=== PATIENT | male | born 1980 | race African-American/Black ===

== ENCOUNTER 2018-02-02 09:29 | Emergency (ER) | payer OTHER, MEDICAID | END 2018-02-02 10:27 | disposition home or self-care (01) | LOC: FTE 09:29 | DX: J06.9 Acute upper respiratory infection, unspecified (principal); R40.2412 Glasgow coma scale score 13-15, at arrival to emergency department | CPT/HCPCS: 99282; Z7502 ==

== ENCOUNTER 2018-04-13 16:56 | Emergency (ER) | payer OTHER | END 2018-04-13 18:31 | disposition home or self-care (01) | LOC: FTE 16:56 | DX: M54.2 Cervicalgia (principal); M54.6 Pain in thoracic spine; Z87.891 Personal history of nicotine dependence | CPT/HCPCS: 99282; Z7502 ==

== ENCOUNTER 2018-10-03 11:42 | Emergency (ER) | payer OTHER | END 2018-10-03 12:44 | disposition home or self-care (01) | LOC: E/R 11:42 | DX: K52.9 Noninfective gastroenteritis and colitis, unspecified (principal) | CPT/HCPCS: 99283; Z7502 ==

== ENCOUNTER 2018-10-27 11:27 | Emergency (ER) | payer OTHER | END 2018-10-27 12:28 | disposition home or self-care (01) | LOC: FTE 11:27 | DX: Z48.01 Encounter for change or removal of surgical wound dressing (principal) | CPT/HCPCS: 99281; Z7502 ==